=== PATIENT | male | born 1980 | race Caucasian/White ===

== ENCOUNTER 2018-08-31 08:26 | Emergency (ER) | payer BC ==
[2018-08-31] MEDS ORDERED: Sodium Chloride 0.9% 10 ML Syringe FLUSH PRN (09:06)
[2018-08-31] MEDS ORDERED: Clindamycin Phosphate 600 MG in Sodium Chloride 0.9% 100 ML IV ONE ×2 (09:06→09:34)
--- NOTE | 2018-08-31 09:37 | EDM.PDOC ---
ED HPI GENERAL MEDICAL PROBLEM - General Chief Complaint: ENT Problem Stated Complaint: SENT BY DR DOVE FOR ANTIBIOTIC IV Time Seen by Provider: 08/31/18 08:58 Source of Information: Reports: Patient, RN Notes Reviewed - History of Present Illness INITIAL COMMENTS - FREE TEXT/NARRATIVE: 38-year-old male began having difficulty with a dental infection a week ago left lateral incisor left upper mouth. His dentist did start him on clindamycin 300 mg 4 times daily. It did not seem to be getting much better so he was switched over to Zithromax 2 days ago, the clindamycin was stopped. Yesterday and today he has developed swelling of his left face lateral to the infection. He continues to have discomfort base of left incisor. He is had no fever or chills. There has been pressure sensitivity as well. No major swelling of the gum that he is aware of,no drainage. Left Oral/Mouth Pain Score (Numeric/FACES): 4 - Related Data Allergies Allergy/AdvReac Type Severity Reaction Status Date / Time amoxicillin Allergy Rash Verified 08/31/18 08:39 Home Meds: Home Meds Clindamycin HCl 300 mg PO QID #12 capsule 08/31/18 [Rx] L.acidoph,Paracasei, B.lactis [Probiotic] 1 cap PO DAILY 08/31/18 [History] Multivitamin [Multi-Vitamin Daily] 1 tab PO DAILY 08/31/18 [History] Past Medical History - Past Health History Medical/Surgical History: Denies Medical/Surgical History Social & Family History - Tobacco Use Smoking Status *Q: Never Smoker - Caffeine Use Caffeine Use: Reports: Coffee - Recreational Drug Use Recreational Drug Use: No ED ROS ENT - Review of Systems Review Of Systems: See Below Constitutional: Denies: Fever, Chills HEENT: Reports: Dental Pain, Other (Swelling left face) Respiratory: Denies: Shortness of Breath GI/Abdominal: Denies: Abdominal Pain, Nausea, Vomiting Musculoskeletal: Reports: No Symptoms Skin: Reports: No Symptoms. Denies: Erythema Neurological: Reports: No Symptoms ED EXAM, ENT - Physical Exam Exam: See Below General Appearance: Alert, No Apparent Distress Mouth/Throat: Dental Tenderness (Left lateral incisor) Head: Facial Swelling (There is very mild swelling of the left lateral mid face , no warmth or erythema, minimal tenderness lateral to the left maxilla. No visible or palpable abscess.) Neck: Supple, Full Range of Motion. No: Lymphadenopathy (L), Lymphadenopathy (R ) Respiratory/Chest: No Respiratory Distress, Lungs Clear, Normal Breath Sounds Cardiovascular: Regular Rate, Rhythm Extremities: Normal Inspection Neurological: Alert, Oriented, No Motor/Sensory Deficits Skin: Warm, Dry, Normal Color Course - Vital Signs Last Recorded V/S: Last Vital Signs Temp 97.1 F 08/31/18 08:33 Pulse 84 08/31/18 08:33 Resp 18 08/31/18 08:33 BP 155/87 H 08/31/18 08:33 Pulse Ox 97 08/31/18 08:33 - Orders/Labs/Meds Orders: Active Orders 24 hr Category Date Time Status Peripheral IV Care [RC] . DIRECTED Care 08/31/18 09:06 Active Peripheral IV Insertion Adult [OM.PC] Stat Oth 08/31/18 09:06 Ordered Meds: Medications Discontinued Medications Generic Name Dose Route Start Last Admin Trade Name Freq PRN Reason Stop Dose Admin Clindamycin Phosphate 600 mg/ 104 mls @ 100 mls/hr 08/31/18 09:06 08/31/18 09 :17 Sodium Chloride IV 08/31/18 10:08 100 mls/hr ONETIME ONE Administration Clindamycin Phosphate 600 mg/ 104 mls @ 100 mls/hr 08/31/18 09:34 08/31/18 10 :09 Sodium Chloride IV 08/31/18 10:36 100 mls/hr ONETIME ONE Administration Sodium Chloride 10 ml 08/31/18 09:06 08/31/18 09:17 Saline Flush FLUSH 10 ml ASDIRECTED PRN Administration Keep Vein Open - Re-Assessments/Exams Free Text/Narrative Re-Assessment/Exam: 09/01/18 08:31 Have given a total of 1200 mg clindamycin IV, note that he weighs 143 kg. Will continue with 900 mg clindamycin IV bid Weds PM, and the next 2 days out patient IV therapy. Departure - Departure Time of Disposition: 10:00 Disposition: Home, Self-Care 01 Condition: Fair Clinical Impression: Dental infection - Discharge Information Prescriptions: Clindamycin HCl 300 mg PO QID #12 capsule Instructions: Dental Abscess, [id number] Referrals: Santiago Deshpande Jr, MD [Primary Care Provider] - Forms: ED Department Discharge Additional Instructions: Continue the zithomax as prescribed until gone. Return to hospital for continued IV clindamycin 900 mg this evening and then twice tomorrow and Wednesday as discussed with dosage approximately 12 hours apart. You may alternate Tylenol and ibuprofen or Aleve as needed for discomfort. Start oral clindamycin 300 mg 4 times daily and take that for another 5 to 6 days or until gone. Prescription for that has been sent electronic to [facility]. Follow-up with your dentist early next week for recheck. Return to emergency department if symptoms worsening in any way. - My Orders Last 24 Hours: My Active Orders 08/31/18 09:06 Peripheral IV Care [RC] . DIRECTED Peripheral IV Insertion Adult [OM.PC] Stat - Assessment/Plan Last 24 Hours: My Active Orders 08/31/18 09:06 Peripheral IV Care [RC] . DIRECTED Peripheral IV Insertion Adult [OM.PC] Stat
== END 2018-08-31 11:17 | disposition home or self-care (01) ==
LOC: JD.ED 08:26
DX: K04.7 Periapical abscess without sinus (principal); Z88.1 Allergy status to other antibiotic agents; Z79.899 Other long term (current) drug therapy
CPT/HCPCS: 96365; 96366; 99282; J3490; J7030

== ENCOUNTER 2018-10-16 10:31 | Emergency (ER) | payer BC ==
--- NOTE | 2018-10-16 11:02 | EDM.PDOC ---
ED HPI GENERAL MEDICAL PROBLEM - General Chief Complaint: Back Pain or Injury Stated Complaint: BACK PAIN Time Seen by Provider: 10/16/18 10:52 Source of Information: Reports: Patient, RN Notes Reviewed History Limitations: Reports: No Limitations - History of Present Illness INITIAL COMMENTS - FREE TEXT/NARRATIVE: Patient is a 38-year-old male who presents to the ED for evaluation of mid back pain. He states that yesterday as he was pulling on his boots from a standing position he felt a twinge in his back and he thought that he had maybe pulled a muscle. He states that the pain was not too bad yesterday. He did take 800 mg ibuprofen last night before bedtime he cannot state if this helps because he went to bed. This morning he woke up with severe pain in his mid back directly in the center of his back he states that this pain does not radiate to the front of his chest nor does it radiate down any leg. He denies any urinary symptoms or history of kidney stones at this time. He denies chest pain, shortness of breath, any abdominal pain. He states that his primary care provider is Dr. Deshpande. He states that any type of movement at all "locks" his back up. He states on the drive over here even lifting his arm to turn on the turn signal aggravated the pain in his back. He would rate this at an 8 out of 10. He further denies any previous injury to this area or his back in general. Lower Back Pain Score (Numeric/FACES): 8 - Related Data Allergies Allergy/AdvReac Type Severity Reaction Status Date / Time amoxicillin Allergy Rash Verified 10/16/18 11:00 Home Meds: Home Meds L.acidoph,Paracasei, B.lactis [Probiotic] 1 cap PO DAILY 08/31/18 [History] Multivitamin [Multi-Vitamin Daily] 1 tab PO DAILY 08/31/18 [History] Diazepam [Valium] 5 mg PO TID PRN #12 tablet 10/16/18 [Rx] Orphenadrine [Norflex] 100 mg PO BID PRN #20 tab 10/16/18 [Rx] traMADol [Ultram] 50 mg PO Q6H PRN #28 tab 10/16/18 [Rx] Past Medical History - Past Health History Medical/Surgical History: Denies Medical/Surgical History Social & Family History - Tobacco Use Smoking Status *Q: Never Smoker Second Hand Smoke Exposure: No - Caffeine Use Caffeine Use: Reports: Coffee - Recreational Drug Use Recreational Drug Use: No ED ROS GENERAL - Review of Systems Review Of Systems: See Below Constitutional: Reports: No Symptoms HEENT: Reports: No Symptoms Respiratory: Reports: No Symptoms Cardiovascular: Reports: No Symptoms Endocrine: Reports: No Symptoms GI/Abdominal: Reports: No Symptoms : Reports: No Symptoms Musculoskeletal: Reports: Back Pain (mid back). Denies: Leg Pain, Foot Pain Skin: Reports: No Symptoms Neurological: Reports: No Symptoms Psychiatric: Reports: No Symptoms Hematologic/Lymphatic: Reports: No Symptoms Immunologic: Reports: No Symptoms ED EXAM,LOWER BACK PAIN/INJURY - Physical Exam Exam: See Below Exam Limited By: No Limitations General Appearance: Alert, WD/WN, Mild Distress (Patient is in wheelchair, he states it is too painful to get up to move to the ED cot.) Eye Exam: Bilateral Eye: Normal Inspection Ears: Normal External Exam Nose: Normal Inspection Throat/Mouth: Normal Inspection, Normal Oropharynx Head: Atraumatic, Normocephalic Neck: Normal Inspection Respiratory/Chest: No Respiratory Distress, Lungs Clear, Normal Breath Sounds, No Accessory Muscle Use, Chest Non-Tender Cardiovascular: Normal Peripheral Pulses, Regular Rate, Rhythm, No Murmur GI/Abdominal: Normal Bowel Sounds, Soft, Non-Tender, No Distention, No Mass Back Exam: Normal Inspection, Decreased Range of Motion (Due to pain in his back , however he is able to move in all directions), Muscle Spasm. No: CVA Tenderness (L), CVA Tenderness (R) Extremities: Normal Inspection, Normal Range of Motion, Non-Tender, Normal Capillary Refill Neurological: Alert, Normal Mood/Affect, Normal Dorsiflexion, Normal Plantar Flexion, No Motor/Sensory Deficits, Oriented x 3 Psychiatric: Normal Affect, Normal Mood Skin Exam: Warm, Dry, Intact, Normal Color, No Rash Course - Vital Signs Last Recorded V/S: Last Vital Signs Temp 97.8 F 10/16/18 10:54 Pulse 82 10/16/18 10:54 Resp 16 10/16/18 10:54 BP 142/91 H 10/16/18 10:54 Pulse Ox 98 10/16/18 10:54 - Orders/Labs/Meds Meds: Medications Discontinued Medications Generic Name Dose Route Start Last Admin Trade Name Maryam PRN Reason Stop Dose Admin Diazepam 5 mg 10/16/18 12:43 10/16/18 12:53 Valium. PO 10/16/18 12:44 5 mg ONETIME ONE Administration Ketorolac Tromethamine 30 mg 10/16/18 11:08 10/16/18 11:17 Toradol IM 10/16/18 11:09 30 mg ONETIME ONE Administration Orphenadrine Citrate 100 mg 10/16/18 11:07 10/16/18 11:17 Norflex PO 10/16/18 11:08 100 mg ONETIME ONE Administration Tramadol HCl 50 mg 10/16/18 11:56 10/16/18 12:03 Ultram PO 10/16/18 11:57 50 mg ONETIME ONE Administration - Re-Assessments/Exams Free Text/Narrative Re-Assessment/Exam: 10/16/18 11:14 Patient presents to the ED for the evaluation of mid back pain. This is around the L1 distribution, suspicious for a pulled muscle or muscle spasm at this time. I have ordered 100 mg PO Norflex, and 30 mg IM Toradol for initial management. 10/16/18 11:56 Patient is re-examined at bedside and states that the dull ache has subsided somewhat. He is able to sit forward in the wheelchair without much pain. As he was trying to get up from the wheelchair, however he did have some pain with this, I did order 50 mg of tramadol for further pain relief at this time. 10/16/18 12:45 Pain is better, but he is still unable to lift himself off the wheelchair without back spasms. I have ordered 5mg PO valium for relief of this. 10/16/18 13:45 After the valium, the patient has been able to get himself to the bed from the wheelchair with little pain. Will discharge home with Valium Qnoc, norflex and tramadol during the day. Departure - Departure Time of Disposition: 13:46 Disposition: Home, Self-Care 01 Condition: Fair Clinical Impression: Low back pain Qualifiers: Chronicity: acute Back pain laterality: bilateral Sciatica presence: without sciatica Qualified Code(s): M54.5 - Low back pain - Discharge Information *PRESCRIPTION DRUG MONITORING PROGRAM REVIEWED*: No *COPY OF PRESCRIPTION DRUG MONITORING REPORT IN PATIENT JAROD: No Prescriptions: Diazepam [Valium] 5 mg PO TID PRN #12 tablet PRN Reason: Spasms Orphenadrine [Norflex] 100 mg PO BID PRN #20 tab PRN Reason: Spasms traMADol [Ultram] 50 mg PO Q6H PRN #28 tab PRN Reason: Pain Instructions: Muscle Strain, [id number], Pain Medicine Instructions, Easy-to- Read, Back Injury Prevention, [id number] Referrals: Santiago Deshpande Jr, MD [Primary Care Provider] - Forms: ED Department Discharge Additional Instructions: You have been evaluated in the ED for your back pain. Please use ice/heat as tolerated to the affected area. You have been provided with prescriptions for: 1. Tramadol, please take 1 tab by mouth every 4-6 hrs PRN for pain. You may take up to 400 mg ibuprofen in conjunction with this as these medicines work well with each other to provide pain relief. 2. Norflex, please take 1 tab by mouth BID for muscle spasms. 3. Valium, please take 1 tab by mouth up to Three times daily PRN, or only at night time if it is too sedating during the day. Please do not drive if you are taking the Valium during the day. Recommend that you take it easy with limited activity for the next 24-48 hours so that her back may have some adequate time to heal. Do not exceed 3200mg ibuprofen in a 24 hour time period. Recommend that you follow up with your primary care provider, Dr. Deshpande for further imaging and management of your back pain. Please return to ED if your symptoms should change or worsen.
[2018-10-16] MEDS ORDERED: Orphenadrine 100 MG Tab.ER PO ONE (11:07)
[2018-10-16] MEDS ORDERED: Ketorolac 30 MG/ML SDV IM ONE (11:08)
[2018-10-16] MEDS ORDERED: traMADol 50 MG Tab PO ONE (11:56)
[2018-10-16] MEDS ORDERED: Diazepam 5 MG Tab PO ONE (12:43)
== END 2018-10-16 14:05 | disposition home or self-care (01) ==
LOC: JD.ED 10:31
DX: M54.5 Low back pain (principal); Z88.1 Allergy status to other antibiotic agents; Z79.899 Other long term (current) drug therapy
CPT/HCPCS: 96372; 99283; A9270; J1885

== ENCOUNTER 2020-09-08 17:28 | Emergency (ER) | payer BC ==
[2020-09-08] MEDS ORDERED: Ketorolac 60 MG/2 ML SDV IM ONE (19:16)
--- NOTE | 2020-09-08 19:21 | EDM.PDOC ---
ED HPI GENERAL MEDICAL PROBLEM - General Chief Complaint: Lower Extremity Injury/Pain Stated Complaint: R KNEE PAIN Time Seen by Provider: 09/08/20 17:43 Source of Information: Reports: Patient, RN Notes Reviewed History Limitations: Reports: No Limitations - History of Present Illness INITIAL COMMENTS - FREE TEXT/NARRATIVE: Patient is a 40-year-old male presenting to the emergency department with complaints of right knee pain. He states prior to coming to the ER, he slipped on ice and hyperextended his knee laterally. He did not fall or land on the knee. At the time of the injury, he felt a pop and has been having intense pain since that time. He is unable to bend the knee without severe discomfort. Denies any history of previous injuries to this knee. Treatments CENTER DIRECTOR: Reports: NSAIDS right knee Pain Score (Numeric/FACES): 7 - Related Data Allergies Allergy/AdvReac Type Severity Reaction Status Date / Time amoxicillin Allergy Rash Verified 10/16/18 11:00 Dairy Products Allergy Cannot Verified 09/08/20 17:42 Remember Home Meds: Home Meds Multivitamin [Multi-Vitamin Daily] 1 tab PO DAILY 08/31/18 [History] Past Medical History - Past Health History Medical/Surgical History: Denies Medical/Surgical History - Past Surgical History Musculoskeletal Surgical History: Reports: Shoulder Surgery, Other (See Below) Other Musculoskeletal Surgeries/Procedures:: right shoulder, right knee surgery Social & Family History - Tobacco Use Tobacco Use Status *Q: Never Tobacco User - Caffeine Use Caffeine Use: Reports: Coffee - Recreational Drug Use Recreational Drug Use: No Review of Systems - Review of Systems Review Of Systems: Comprehensive ROS is negative, except as noted in HPI. ED EXAM, GENERAL - Physical Exam Exam: See Below Exam Limited By: No Limitations General Appearance: Alert, WD/WN, No Apparent Distress Respiratory/Chest: No Respiratory Distress, Lungs Clear, Normal Breath Sounds, No Accessory Muscle Use, Chest Non-Tender Cardiovascular: Normal Peripheral Pulses, Regular Rate, Rhythm, No Edema, No Gallop, No JVD, No Murmur, No Rub Extremities: Other (Generalized edema to the right knee. Worse over the anterior aspect. No obvious deformity. Tenderness to palpation over the anterior knee.) Neurological: Alert, Oriented, CN II-XII Intact, Normal Cognition, Normal Gait, Normal Reflexes, No Motor/Sensory Deficits Course - Vital Signs Last Recorded V/S: Last Vital Signs Temp 97.6 F 09/08/20 17:39 Pulse 72 09/08/20 17:39 Resp 18 09/08/20 17:39 BP 153/77 H 09/08/20 17:39 Pulse Ox 99 09/08/20 17:39 - Orders/Labs/Meds Orders: Active Orders 24 hr Category Date Time Status Knee 3V Rt [CR] Stat Exams 09/08/20 17:44 Taken DME for Discharge [COMM] Routine Oth 09/08/20 19:16 Ordered Meds: Medications Discontinued Medications Generic Name Dose Route Start Last Admin Trade Name Frezaynab PRN Reason Stop Dose Admin Ketorolac Tromethamine 60 mg 09/08/20 19:16 Toradol IM 09/08/20 19:17 ONETIME ONE - Re-Assessments/Exams Free Text/Narrative Re-Assessment/Exam: 09/08/20 19:19 X-ray of the knee visualized by myself and Dr. Alston. No acute abnormalities visualized with the exception of significant soft tissue swelling overlying the patella. Discussed with patient that this is likely a ligamentous injury, therefore this will not be visible on x-ray. We will place him in a knee immobilizer and provide crutches. I have also ordered an injection of Toradol 60 mg IM. Referral will be sent to Dr. Stoddard, orthopedist. Recommend nonweightbearing, ice, and elevation for the next few days and until evaluated by Dr. Stoddard. Patient is in agreement with this plan. Discharge instructions as documented. Departure - Departure Time of Disposition: 19:20 Disposition: Home, Self-Care 01 Condition: Good Clinical Impression: Sprain of knee - Discharge Information *PRESCRIPTION DRUG MONITORING PROGRAM REVIEWED*: No *COPY OF PRESCRIPTION DRUG MONITORING REPORT IN PATIENT JAROD: No Instructions: Knee Sprain, Adult, [id number] Referrals: Santiago Deshpande Jr, MD [Primary Care Provider] - Christophe Stoddard MD [Physician] - Forms: ED Department Discharge Additional Instructions: You were seen in the emergency department today for knee pain and swelling after slipping on the ice. X-rays are completed and found to have no abnormality. As we discussed, an injury to the ligaments of the knee which would not be visible on x-ray. While in the ER, you received an injection of Toradol for the pain and inflammation of the knee. You have been provided a knee immobilizer and crutches. May nonweightbearing on the knee until evaluated by orthopedics. Recommend intermittent ice and elevation for the next few days. You may use [id number] Tylenol and ibuprofen as needed for discomfort. A referral has been sent to orthopedist, Dr. Stoddard. Recommend contacting his office tomorrow to set up a follow-up appointment. Return to ER for any new or worsening symptoms of concern. Sepsis Event Note (ED) - Evaluation Sepsis Screening Result: No Definite Risk - Focused Exam Vital Signs: Vital Signs Temp Pulse Resp BP Pulse Ox 09/08/20 17:39 97.6 F 72 18 153/77 H 99 - My Orders Last 24 Hours: My Active Orders 09/08/20 17:44 Knee 3V Rt [CR] Stat 09/08/20 19:16 DME for Discharge [COMM] Routine - Assessment/Plan Last 24 Hours: My Active Orders 09/08/20 17:44 Knee 3V Rt [CR] Stat 09/08/20 19:16 DME for Discharge [COMM] Routine
--- NOTE | 2020-09-09 12:55 | CR ---
Right knee: AP, lateral and sunrise patellar views of the right knee were obtained. Comparison: No prior knee exam is available. Medial and lateral joint compartments are maintained in height. No discrete joint effusion is appreciated. Patellofemoral joint appears within normal limits. No acute fracture or other bony abnormality is seen. Small area of sclerosis is noted within the proximal tibia compatible with bone island. Impression: 1. Nothing acute is appreciated on 3 view right knee exam. Diagnostic code #1 MTDD
== END 2020-09-08 20:12 | disposition home or self-care (01) ==
LOC: JD.ED 17:28
DX: S83.91XA Sprain of unspecified site of right knee, initial encounter (principal); Z88.0 Allergy status to penicillin; Z91.011 Allergy to milk products; W00.0XXA Fall on same level due to ice and snow, initial encounter
CPT/HCPCS: 73562; 96372; 99283; J1885

== ENCOUNTER 2020-09-19 08:26 | Day surgery (SDC) | payer BC ==
[~2020-09-19 08:26] MED LIST: Dexamethasone 4 MG/ML 5 ML MDV ONE; EPINEPHrine 1 MG/ML SDV ONE; Ketamine 500 mg/10 ML MDV ONE; Lactated Ringers 1,000 ML IV SCH; Lactated Ringers 1,000 ML ONE; Lidocaine 1% 2 ML ONE; Lidocaine 1% 4 ML ONE; Lidocaine 1%/Sod Bicarbonate in NS 8.4% 1 ML Syringe IDERM PRN; Lidocaine 2% with EPINEPHrine 1:200,000 20 ML SDV ONE; Midazolam 1 MG/ML 2 ML SDV ONE; Ondansetron 4 MG/2 ML SDV ONE; Propofol 200 MG/20 ML SDV ONE; Ropivacaine 0.5% 5 MG/ML 30 ML SDV ONE; Sodium Chloride 0.9% 10 ML Syringe FLUSH PRN; ceFAZolin 1 GM Vial ONE; fentaNYL 100 MCG/2 ML SDV ONE
[2020-09-19] MEDS ORDERED: Bupivacaine 0.25% 10 ML SDV ONE (08:38)
[2020-09-19] MEDS ORDERED: fentaNYL 100 MCG/2 ML SDV IVPUSH PRN (09:07)
[2020-09-19] MEDS ORDERED: Ondansetron 4 MG/2 ML SDV IVPUSH PRN (09:07)
[2020-09-19] MEDS ORDERED: HYDROmorphone 0.5 MG/0.5 ML Syringe IVPUSH PRN (09:07)
--- NOTE | 2020-09-19 09:08 | PCM.PREANE ---
Preanesthetic Assessment - Procedure Proposed Procedure: Right Quadriceps Tendon Repair - Anesthesia/Transfusion/Family Hx Anesthesia History: Prior Anesthesia Without Reaction Family History of Anesthesia Reaction: No - Review of Systems General: No Symptoms Pulmonary: No Symptoms Cardiovascular: No Symptoms Gastrointestinal: No Symptoms Neurological: No Symptoms Other: Reports: None (Obesity BMI 39.8) - Physical Assessment NPO Status Date: 09/18/20 NPO Status Time: 23:30 Vital Signs: Last Vital Signs Temp 36.9 C 09/19/20 08:14 Pulse 82 09/19/20 08:14 Resp 18 09/19/20 08:14 BP 139/69 09/19/20 08:14 Pulse Ox 96 09/19/20 08:14 Weight: 144 kg ASA Class: 2 Mental Status: Alert & Oriented x3 Airway Class: Mallampati = 2 Dentition: Reports: Normal Dentition Thyro-Mental Finger Breadths: 3 Mouth Opening Finger Breadths: 3 ROM/Head Extension: Full Lungs: Clear to Auscultation, Normal Respiratory Effort Cardiovascular: Regular Rate, Regular Rhythm - Lab Values: Laboratory Last Values MRSA (PCR) Negative 09/17/20 09:30 - Allergies Allergies/Adverse Reactions: Allergies Allergy/AdvReac Type Severity Reaction Status Date / Time amoxicillin Allergy Rash Verified 09/18/20 12:41 Dairy Products Allergy Cannot Verified 09/18/20 12:41 Remember Penicillins Allergy Rash Verified 09/18/20 12:41 - Anesthesia Plan Pre-Op Medication Ordered: Anxiolytic - Acknowledgements Anesthesia Type Planned: General Anesthesia, Regional Block (Femoral Nerve Block for post operative pain control requested by Dr. Stoddard.) Pt an Appropriate Candidate for the Planned Anesthesia: Yes Alternatives and Risks of Anesthesia Discussed w Pt/Guardian: Yes Pt/Guardian Understands and Agrees with Anesthesia Plan: Yes PreAnesthesia Questionnaire - Past Health History Medical/Surgical History: Denies Medical/Surgical History HEENT History: Reports: Impaired Vision, Other (See Below) Other HEENT History: wears glasses/contacts Cardiovascular History: Reports: None Respiratory History: Reports: None Gastrointestinal History: Reports: None Genitourinary History: Reports: None CERAMICS TECHNICIAN History: Reports: None Neurological History: Reports: None Psychiatric History: Reports: None Endocrine/Metabolic History: Reports: None Hematologic History: Reports: None Immunologic History: Reports: None Oncologic (Cancer) History: Reports: None Dermatologic History: Reports: None - Infectious Disease History Infectious Disease History: Reports: None - Past Surgical History Head Surgeries/Procedures: Reports: None Cardiovascular Surgical History: Reports: None Respiratory Surgical History: Reports: None GI Surgical History: Reports: None Female Surgical History: Reports: None Male Surgical History: Reports: None Endocrine Surgical History: Reports: None Neurological Surgical History: Reports: None Musculoskeletal Surgical History: Reports: Shoulder Surgery, Other (See Below) Other Musculoskeletal Surgeries/Procedures:: right shoulder, right knee surgery Oncologic Surgical History: Reports: None Dermatological Surgical History: Reports: None - SUBSTANCE USE Tobacco Use Status *Q: Current Every Day Tobacco User Recreational Drug Use History: No - HOME MEDS Home Medications: Home Meds Acetaminophen [Tylenol] 650 mg PO Q4H PRN 09/18/20 [History] Acetaminophen/HYDROcodone [[place] 325-5 MG] 1 - 2 tab PO Q6H PRN #30 tablet 09/18/20 [Rx] Aspirin [Aspirin EC] 325 mg PO BID #84 tab 09/18/20 [Rx] Cyclobenzaprine [Flexeril] 10 mg PO BID PRN #20 tab 09/18/20 [Rx] - CURRENT (IN HOUSE) MEDS Current Meds: Current Medications Lactated Ringer's (Ringers, Lactated) 1,000 mls @ 125 mls/hr IV ASDIRECTED TODD Stop: 09/19/20 23:00 Lidocaine/Sodium Bicarbonate (Buffered Lidocaine 1% In Ns 8.4%) 0.25 ml IDERM ONETIME PRN PRN Reason: Prior to IV Start Stop: 09/19/20 18:00 Sodium Chloride (Saline Flush) 10 ml FLUSH ASDIRECTED PRN PRN Reason: Keep Vein Open Stop: 09/19/20 18:00 Discontinued Medications Bupivacaine HCl (Sensorcaine-Mpf 0.25%) Confirm Administered Dose 30 ml .ROUTE .STK-MED ONE Stop: 09/19/20 08:39 Cefazolin Sodium (Ancef) Confirm Administered Dose 2 gm .ROUTE .STK-MED ONE Stop: 09/19/20 07:32 Dexamethasone (Dexamethasone) Confirm Administered Dose 20 mg .ROUTE .STK-MED ONE Stop: 09/19/20 07:39 Epinephrine HCl (Adrenalin) Confirm Administered Dose 1 mg .ROUTE .STK-MED ONE Stop: 09/19/20 07:41 Fentanyl (Sublimaze) Confirm Administered Dose 100 mcg .ROUTE .STK-MED ONE Stop: 09/19/20 07:33 Lactated Ringer's (Ringers, Lactated) Confirm Administered Dose 1,000 mls @ as directed .ROUTE .ST-MED ONE Stop: 09/19/20 07:32 Lidocaine HCl (Xylocaine-Mpf 1%) Confirm Administered Dose 4 mls @ as directed .ROUTE .ST-MED ONE Stop: 09/19/20 07:34 Lidocaine HCl (Xylocaine-Mpf 1%) Confirm Administered Dose 2 mls @ as directed .ROUTE .ST-MED ONE Stop: 09/19/20 07:39 Ketamine HCl (Ketalar) Confirm Administered Dose 500 mg .ROUTE .STK-MED ONE Stop: 09/19/20 07:38 Lidocaine/Epinephrine (Xylocaine-Mpf 2%-Epi 1:200,000) Confirm Administered Dose 20 ml .ROUTE .ST-MED ONE Stop: 09/19/20 07:43 Midazolam HCl (Versed 1 Mg/Ml) Confirm Administered Dose 2 mg .ROUTE .STK-MED ONE Stop: 09/19/20 07:33 Midazolam HCl (Versed 1 Mg/Ml) Confirm Administered Dose 2 mg .ROUTE .STK-MED ONE Stop: 09/19/20 07:36 Ondansetron HCl (Zofran) Confirm Administered Dose 4 mg .ROUTE .STK-MED ONE Stop: 09/19/20 07:32 Propofol (Diprivan 20 Ml) Confirm Administered Dose 400 mg .ROUTE .STK-MED ONE Stop: 09/19/20 07:33 Ropivacaine (Naropin 0.5%) Confirm Administered Dose 30 ml .ROUTE .STK-MED ONE Stop: 09/19/20 07:41
[2020-09-19] MEDS ORDERED: Propofol 200 MG/20 ML SDV ONE (09:58)
[2020-09-19] MEDS ORDERED: ceFAZolin 1 GM Vial ONE (10:03)
[2020-09-19] MEDS ORDERED: HYDROmorphone 0.5 MG/0.5 ML Syringe ONE ×2 (10:14→10:58)
[2020-09-19] MEDS ORDERED: Dexamethasone 4 MG/ML 5 ML MDV ONE (10:17)
[2020-09-19] MEDS ORDERED: Ketorolac 30 MG/ML SDV ONE (10:53)
--- NOTE | 2020-09-19 11:23 | CR ---
Right knee: 3 fluoroscopic spot views were obtained of the right knee. Study shows 2 pins across the patella. Fluoroscopy time is given as 29.3 seconds. Impression: 1. Procedural study as noted above. Diagnostic code #2
--- NOTE | 2020-09-19 11:53 | PCM.POSTAN ---
POST ANESTHESIA ASSESSMENT - MENTAL STATUS Mental Status: Alert, Oriented - VITAL SIGNS Vital Signs: Last Vital Signs Temp 36.6 C 09/19/20 11:45 Pulse 88 09/19/20 11:45 Resp 14 09/19/20 11:45 BP 143/85 H 09/19/20 11:45 Pulse Ox 93 L 09/19/20 11:45 - RESPIRATORY Respiratory Status: Respiratory Rate WNL, Airway Patent, O2 Saturation Stable, Supplemental Oxygen - CARDIOVASCULAR CV Status: Pulse Rate WNL, Blood Pressure Stable - GASTROINTESTINAL GI Status: No Symptoms - PAIN Pain Score: 0 - POST OP HYDRATION Hydration Status: Adequate & Stable
--- NOTE | 2020-09-19 12:01 | PCM.SN.2 ---
- Free Text/Narrative Note: Right femoral nerve block for post-procedure pain control under ultrasound guidance requested by Dr. Stoddard. Time Out: 925 Start: 926 End: 931 Chart reviewed. Consent signed. Questions answered. Appropriate monitors applied. Time out performed. The femoral artery is visualized, and the femoral nerve located laterally to the artery. The skin was prepped lateral to the ultrasound probe with chlorahexadine times two. The 21ga 4 insulated block needle was inserted under direct ultrasound guidance into the adductor canal. 10 ml of 2% lidocaine with 1:200,000 epinepherine and 20 mL of 0.5% ropivacaine with 1:200,000 epinephrine and 8 mg of dexamethasone was injected circumferentially around the nerve with intermittent negative aspiration noted. Patient tolerated the procedure well. Sterile technique noted along with sterile gloves, mask, and sterile probe cover. See picture on progress note and vital signs on nurses notes. Block completed in PACU. Usha Pierson CRNA
--- NOTE | 2020-09-19 12:35 | PCM48HPAN ---
Post Anesthesia Note - EVALUATION WITHIN 48HRS OF ANESTHETIC Vital Signs in Normal Range: Yes Patient Participated in Evaluation: Yes Respiratory Function Stable: Yes Airway Patent: Yes Cardiovascular Function Stable: Yes Hydration Status Stable: Yes Pain Control Satisfactory: Yes Nausea and Vomiting Control Satisfactory: Yes Mental Status Recovered: Yes Vital Signs: Last Vital Signs Temp 37.2 C 09/19/20 12:15 Pulse 85 09/19/20 12:15 Resp 15 09/19/20 12:15 BP 144/82 H 09/19/20 12:15 Pulse Ox 91 L 09/19/20 12:15
--- NOTE | 2020-09-29 13:36 | PCM.OPNOTE ---
- General Post-Op/Procedure Note Date of Surgery/Procedure: 09/19/20 Operative Procedure(s): right quadriceps tendon primary repair Pre Op Diagnosis: right quadriceps tendon rupture Post-Op Diagnosis: Same Anesthesia Technique: General LMA, Regional Block Primary Surgeon: Christophe Stoddard Anesthesia Provider: Lexis Pierson [employer] Supervisor: Nola Herrera in mLs: 10 Complications: None Condition: Good
--- NOTE | 2020-09-29 14:13 | OR ---
DATE OF OPERATION: 09/19/2020 SURGEON: Christophe Stoddard MD OPERATION PERFORMED: Right quadriceps tendon primary repair. PREOPERATIVE DIAGNOSIS: Right quadriceps tendon rupture. POSTOPERATIVE DIAGNOSIS: Right quadriceps tendon rupture. ANESTHESIA: General LMA with regional femoral block. ANESTHESIA PROVIDER: Erika Cox. PRODUCT DEVELOPMENT ECOLOGIST: Nola Herrera PA-C ESTIMATED BLOOD LOSS: 10 mL. COMPLICATIONS: None. CONDITION: Stable. DESCRIPTION OF PROCEDURE: The patient was identified in the preoperative holding area. Proper site was marked and identified by the surgeon. The patient was taken back to the operating theater where after adequate anesthesia the patient was given 2 g of IV Ancef. Right lower extremity had a nonsterile tourniquet applied. It was a sterilely prepped and draped in the usual sterile fashion. OR time-out was performed. The patient received the appropriate antibiotics. At this time, the right lower extremity was exsanguinated. Tourniquet was insufflated to 250 mmHg. Standard anterior incision was made. This was taken down to the quadriceps tendon tear. It was noted to be torn directly off the patellar attachment. At this time, I used a curette and rongeur to roughen the patellar attachment for a good bony bleeding bed. Adequate saline was irrigated through the joint line, and the hematoma was evacuated. #5 FiberWire was then stitched through the quadriceps tendon in a modified Krackow stitch, both proximally and then distally. Two K-wires were then placed in a retrograde fashion from the inferior pole to the superior pole. C-arm fluoroscopy was utilized making sure that these were in the proper position on both AP and lateral views. A Hewson suture passer was then placed through the patella through these drill holes, and the suture limbs of the #5 FiberWire were brought to the inferior pole. Tension was then applied, and these were tied at the inferior pole. The knot was buried beneath the patellar tendon. #5 FiberWire was then used for [id number] stitches starting medially, going all the way laterally but making sure not to overtighten on the lateral side to not over tension the patella. It was found to have adequate watertight repair. Adequate saline was irrigated through the wound. 2-0 Vicryl was used subcutaneously, and Prineo was used for closure of the skin. The patient had a sterile soft dressing applied and a hinged knee brace locked in extension, was sent to the PACU in stable condition. SHANNON /[id number]
== END 2020-09-19 14:00 | disposition home or self-care (01) ==
LOC: JD.SDS 08:26
PROVIDERS: ATTEND Orthopaedic Surgery
DX: S76.111A Strain of right quadriceps muscle, fascia and tendon, initial encounter (principal); F17.290 Nicotine dependence, other tobacco product, uncomplicated; Z88.0 Allergy status to penicillin; G89.18 Other acute postprocedural pain; Z79.899 Other long term (current) drug therapy; Z98.890 Other specified postprocedural states; W00.0XXA Fall on same level due to ice and snow, initial encounter; Z91.011 Allergy to milk products
CPT/HCPCS: 27385; 76000; 87641; J0171; J0690; J1100; J1170; J1885; J2250; J2405; J2704; J2795; J3010; J7120; 01320; 64447; J3490